=== PATIENT | female | born 1940 | race Caucasian/White ===

== ENCOUNTER → 2019-09-17 | Outpatient (CLI) | payer MEDICARE ==
--- NOTE | 2019-09-17 14:45 | BD ---
EXAMINATION TYPE: Axial Bone Density DATE OF EXAM: 09/17/2019 COMPARISON: 04.13.2006 CLINICAL HISTORY: M 89.9 Height: 63 Weight: 126.5 FRAX RISK QUESTIONS: Alcohol (3 or more units per day): no Family History (Parent hip fracture): no Glucocorticoids (More than 3mos): no (Ex: prednisone, prednisolone, methylprednisolone, dexamethasone, and hydrocortisone). History of Fracture in Adulthood: no Secondary Osteoporosis: 1. Type 1 Diabetes: no 2. Hyperthyroidism: no 3. Menopause before 45: no 4. Malnutrition: no 5. Chronic liver disease: no Rheumatoid Arthritis: no Current Tobacco Use: no RISK FACTORS HISTORY OF: Family History of Osteoporosis: no Active: yes Diet low in dairy products/other sources of calcium: no Postmenopausal woman: age55 Lost more than 2 inches in height since high school: no MEDICATIONS: vitamins Additional History: EXAM MEASUREMENTS: Bone mineral densitometry was performed using the Focus System. Bone mineral density as measured about the Lumbar spine is: ----- L1-L4(G/cm2): 0.871 T Score Values are as follows: ----- L2: -3.5 ----- L3: -2.7 ----- L4: -1.3 ----- L1-L4: -2.6 Bone mineral density has: decreased -2.0 % since study of: 04.13.2006 Bone mineral density about the R hip (g/cm2): 0.815 Bone mineral density about the L hip (g/cm2): 0.726 T Score values are as follows: -----R Neck: -1.6 -----L Neck: -2.2 -----R Total: -2.2 -----L Total: -2.5 Bone mineral density has: decreased -16.6 % since study of: 04.13.2006 IMPRESSION: Osteoporosis (T Score less than -2.5). There is increased fracture risk and therapy is usually indicated based on age. Re-Screen 1-2 years. NOTE: T-SCORE=SD OF THE YOUNG ADULT MEAN.
--- NOTE | 2019-09-19 10:18 | MM ---
Reason for exam: screening (asymptomatic). Last mammogram was performed 2 years and 3 months ago. History: Patient is postmenopausal. Benign excisional biopsy of the right breast, 2011. Physical Findings: A clinical breast exam by your physician is recommended on an annual basis and results should be correlated with mammographic findings. MG 3D Screening Mammo W/Cad Bilateral CC and MLO view(s) were taken. Prior study comparison: June 29, 2017, bilateral MG screening mammo w CAD. July 24, 2015, mammogram, performed at [facility]. No significant changes when compared with prior studies. ASSESSMENT: Benign, BI-RAD 2 RECOMMENDATION: Routine screening mammogram of both breasts in 1 year.
== END | disposition home or self-care (01) ==
LOC: RADMAMWWP 13:43
PROVIDERS: ATTEND Internal Medicine
DX: Z12.31 Encounter for screening mammogram for malignant neoplasm of breast (principal); M81.0 Age-related osteoporosis without current pathological fracture
CPT/HCPCS: 77063; 77067; 77080

== ENCOUNTER → 2020-11-12 | Outpatient (CLI) | payer MEDICARE ==
--- NOTE | 2020-11-13 13:26 | MM ---
Reason for exam: screening (asymptomatic). Last mammogram was performed 1 year and 2 months ago. History: Patient is postmenopausal. Benign excisional biopsy of the right breast, 2011. Physical Findings: A clinical breast exam by your physician is recommended on an annual basis and results should be correlated with mammographic findings. MG 3D Screening Mammo W/Cad Bilateral CC and MLO view(s) were taken. Prior study comparison: September 17, 2019, bilateral MG 3d screening mammo w/cad. June 29, 2017, bilateral MG screening mammo w CAD. The breast tissue is heterogeneously dense. This may lower the sensitivity of mammography. There are benign appearing round calcifications bilaterally. Asymmetric breast tissue left subareolar position, stable. There is no discrete abnormality. ASSESSMENT: Benign, BI-RAD 2 RECOMMENDATION: Routine screening mammogram of both breasts in 1 year.
== END ==
LOC: RADMAMWWP 15:55
PROVIDERS: ATTEND Internal Medicine
DX: Z12.31 Encounter for screening mammogram for malignant neoplasm of breast (principal); Z78.0 Asymptomatic menopausal state
CPT/HCPCS: 77063; 77067

== ENCOUNTER 2023-12-11 09:41 | Emergency (ER) | payer MEDICARE ==
--- NOTE | 2023-12-11 10:19 | ED ---
General Adult HPI - General Chief complaint: Abdominal Pain Stated complaint: Abd Pain Time Seen by Provider: 12/11/23 09:53 Source: patient, family, RN notes reviewed, old records reviewed Mode of arrival: ambulatory Limitations: altered mental status - History of Present Illness Initial comments: Patient is a pleasant 83-year-old female present to the emergency department with abdominal discomfort. Family is present and helps provide history as mere houser has advanced dementia. Patient had upper abdominal discomfort that was reported as severe and now is not bothering her. Patient denies any chest pain. No nausea or vomiting. No fever. No constipation or diarrhea. - Related Data Home Medications Medication Instructions Recorded Confirmed Memantine [Namenda] 10 mg PO BID 05/03/23 12/11/23 Allergies Allergy/AdvReac Type Severity Reaction Status Date / Time Penicillins AdvReac Rash/Hives Verified 12/11/23 10:43 Review of Systems ROS Statement: Those systems with pertinent positive or pertinent negative responses have been documented in the HPI. ROS Other: All systems not noted in ROS Statement are negative. 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 complete hysterectomy Past Psychological History: No Psychological Hx Reported Smoking Status: Never smoker Past Alcohol Use History: None Reported Past Drug Use History: None Reported General Exam Limitations: altered mental status General appearance: alert, in no apparent distress Head exam: Present: normocephalic Eye exam: Present: normal appearance Neck exam: Present: normal inspection Respiratory exam: Present: normal lung sounds bilaterally Cardiovascular Exam: Present: regular rate, normal rhythm Expanded Peripheral pulses: 2+: Radial (R), Radial (L), Posterior Tibialis (R), Posterior Tibialis (L) GI/Abdominal exam: Present: soft, normal bowel sounds. Absent: distended, tenderness, guarding, rebound, rigid, pulsatile mass Extremities exam: Present: normal inspection Neurological exam: Present: alert Psychiatric exam: Present: normal affect, normal mood Skin exam: Present: normal color Course Vital Signs 12/11/23 12/11/23 12/11/23 09:45 11:20 13:11 Temperature 98.6 F Pulse Rate 85 87 107 H Respiratory 20 18 18 Rate Blood Pressure 167/88 183/91 176/70 O2 Sat by Pulse 97 100 Oximetry Medical Decision Making - Medical Decision Making Was pt. sent in by a medical professional or institution (, PA, SHIP WIRER, urgent care, hospital, or fdc...) When possible be specific @ -No Did you speak to anyone other than the patient for history (EMS, parent, family, police, friend...)? What history was obtained from this source @ -Family is present and helps right history as patient has advanced dementia Did you review nursing and triage notes (agree or disagree)? Why? @ -I reviewed and agree with nursing and triage notes Were old charts reviewed (outside hosp., previous admission, EMS record, old EKG, old radiological studies, urgent care reports/EKG's, fdc records)? Report findings @ -No old charts were reviewed Differential Diagnosis (chest pain, altered mental status, abdominal pain women, abdominal pain men, vaginal bleeding, weakness, fever, dyspnea, syncope, headache, dizziness, GI bleed, back pain, seizure, CVA, palpatations, mental health, musculoskeletal)? @ -Differential Abdominal Pain Women: Appendicitis, Cholecystitis, diverticulosis, ischemic bowel, pancreatitis, hepatitis, UTI, gastroenteritis, AAA, incarcerated hernia, bowel obstruction, constipation, inflammatory bowel, hepatitis, peptic ulcer disease, splenic infarction, perforated viscus, vulvitis, ovarian torsion, PID, kidney stone, placenta abruption, this is not meant to be an all-inclusive list EKG interpreted by me (3pts min.). @ -As above X-rays interpreted by me (1pt min.). @ -None done CT interpreted by me (1pt min.). @ -CT scan abdomen pelvis shows 2 large renal cyst. Ileus. Thoracic aorta 4.4 U/S interpreted by me (1pt. min.). @ -None done What testing was considered but not performed or refused? (CT, X-rays, U/S, labs)? Why? @ -None What meds were considered but not given or refused? Why? @ -None Did you discuss the management of the patient with other professionals (professionals i.e. , PA, SHIP W[employer]ER, lab, RT, psych nurse, social science professor, business banker, teacher, custom protection officer, special education case manager)? Give summary @ -No Was smoking cessation discussed for >3mins.? @ -No Was critical care preformed (if so, how long)? @ -No Were there social determinants of health that impacted care today? How? (Homelessness, low income, unemployed, alcoholism, drug addiction, transportation, low edu. Level, literacy, decrease access to med. care, [facility], rehab)? @ -No Was there de-escalation of care discussed even if they declined (Discuss DNR or withdrawal of care, Hospice)? DNR status @ -No What co-morbidities impacted this encounter? (DM, HTN, Smoking, COPD, CAD, Cancer, CVA, ARF, Chemo, Hep., AIDS, mental health diagnosis, sleep apnea, morbid obesity)? @ -None Was patient admitted / discharged? Hospital course, mention meds given and route, prescriptions, significant lab abnormalities, going to OR and other pertinent info. @ -Patient reevaluated and remains symptom-free. Patient and family updated on results and need for follow-up. Undiagnosed new problem with uncertain prognosis? @ -No Drug Therapy requiring intensive monitoring for toxicity (Heparin, Nitro, Insulin, Cardizem)? @ -No Were any procedures done? @ -No Diagnosis/symptom? @ -Abdominal pain Acute, or Chronic, or Acute on Chronic? @ -Acute Uncomplicated (without systemic symptoms) or Complicated (systemic symptoms)? @ -Default Side effects of treatment? @ -No Exacerbation, Progression, or Severe Exacerbation? @ -No Poses a threat to life or bodily function? How? (Chest pain, [place], [place], pneumonia, PE, COPD, DKA, ARF, appy, cholecystitis, CVA, Diverticulitis, Homicidal, Suicidal, threat to staff... and all critical care pts) @ -No - Lab Data Result diagrams: 12/11/23 11:11 12/11/23 11:11 Lab Results 12/11/23 12/11/23 12/11/23 Range/Units 11:11 11:11 11:11 WBC 8.9 (3.8-10.6) k/uL RBC 5.47 H (3.80-5.40) m/uL Hgb 16.0 (11.4-16.0) gm/dL Hct 47.8 H (34.0-46.0) % MCV 87.4 (80.0-100.0) fL MCH 29.3 (25.0-35.0) pg MCHC 33.5 (31.0-37.0) g/dL RDW 13.1 (11.5-15.5) % Plt Count 307 (150-450) k/uL MPV 8.0 Neutrophils % 79 % Lymphocytes % 13 % Monocytes % 6 % Eosinophils % 1 % Basophils % 0 % Neutrophils # 7.0 (1.3-7.7) k/uL Lymphocytes # 1.2 (1.0-4.8) k/uL Monocytes # 0.5 (0-1.0) k/uL Eosinophils # 0.1 (0-0.7) k/uL Basophils # 0.0 (0-0.2) k/uL PT 9.6 L (10.0-12.5) sec INR 0.8 (<1.2) APTT 26.7 (22.0-30.0) sec Sodium 141 (137-145) mmol/L Potassium 4.7 (3.5-5.1) mmol/L Chloride 106 (98-107) mmol/L Carbon Dioxide 22 (22-30) mmol/L Anion Gap 13 mmol/L BUN 24 H (7-17) mg/dL Creatinine 0.76 (0.52-1.04) mg/dL Est GFR (CKD-EPI)AfAm 86 (>60 ml/min/1.73 sqM) Est GFR (CKD-EPI)NonAf 74 (>60 ml/min/1.73 sqM) Glucose 106 H (74-99) mg/dL Calcium 9.8 (8.4-10.2) mg/dL Total Bilirubin 0.8 (0.2-1.3) mg/dL AST 38 H (14-36) U/L ALT 21 (4-34) U/L Alkaline Phosphatase 120 (38-126) U/L Troponin I (0.000-0.034) ng/mL Total Protein 8.5 H (6.3-8.2) g/dL Albumin 5.1 H (3.5-5.0) g/dL Amylase 70 (30-110) U/L Lipase 94 (23-300) U/L 12/11/23 Range/Units 11:11 WBC (3.8-10.6) k/uL RBC (3.80-5.40) m/uL Hgb (11.4-16.0) gm/dL Hct (34.0-46.0) % MCV (80.0-100.0) fL MCH (25.0-35.0) pg MCHC (31.0-37.0) g/dL RDW (11.5-15.5) % Plt Count (150-450) k/uL MPV Neutrophils % % Lymphocytes % % Monocytes % % Eosinophils % % Basophils % % Neutrophils # (1.3-7.7) k/uL Lymphocytes # (1.0-4.8) k/uL Monocytes # (0-1.0) k/uL Eosinophils # (0-0.7) k/uL Basophils # (0-0.2) k/uL PT (10.0-12.5) sec INR (<1.2) APTT (22.0-30.0) sec Sodium (137-145) mmol/L Potassium (3.5-5.1) mmol/L Chloride (98-107) mmol/L Carbon Dioxide (22-30) mmol/L Anion Gap mmol/L BUN (7-17) mg/dL Creatinine (0.52-1.04) mg/dL Est GFR (CKD-EPI)AfAm (>60 ml/min/1.73 sqM) Est GFR (CKD-EPI)NonAf (>60 ml/min/1.73 sqM) Glucose (74-99) mg/dL Calcium (8.4-10.2) mg/dL Total Bilirubin (0.2-1.3) mg/dL AST (14-36) U/L ALT (4-34) U/L Alkaline Phosphatase (38-126) U/L Troponin I <0.012 (0.000-0.034) ng/mL Total Protein (6.3-8.2) g/dL Albumin (3.5-5.0) g/dL Amylase (30-110) U/L Lipase (23-300) U/L Disposition Clinical Impression: Abdominal pain Disposition: HOME SELF-CARE Condition: Stable Instructions (If sedation given, give patient instructions): Abdominal Pain (ED) Additional Instructions: Please do follow-up with your primary care physician in the next couple of days for recheck. Return for increased pain, vomiting, fever, worsening or changing symptoms or any other concerns. Please have primary care physician review CT scan report including evaluation of ascending thoracic aorta Is patient prescribed a controlled substance at d/c from ED?: No Referrals: Viet Alex MD [Primary Care Provider] - 1-2 days Time of Disposition: 13:56
[2023-12-11] MEDS: FAMOTIDINE 20 MG/2 ML VIAL IV STA (11:19)
[2023-12-11 11:39] LABS: Basophils % (A) 0 %; Eosinophils # (A) 0.1 k/uL (0-0.7); Eosinophils % (A) 1 %; HCT 47.8 % (34.0-46.0); Lymphocytes # (A) 1.2 k/uL (1.0-4.8); Lymphocytes % (A) 13 %; MCH 29.3 pg (25.0-35.0); MCHC 33.5 g/dL (31.0-37.0); MCV 87.4 fL (80.0-100.0); Monocytes # (A) 0.5 k/uL (0-1.0); Monocytes % (A) 6 %; Neutrophils % (A) 79 %; Platelet Count 307 k/uL (150-450); RBC 5.47 m/uL (3.80-5.40); RDW 13.1 % (11.5-15.5); WBC 8.9 k/uL (3.8-10.6)
[2023-12-11 11:51] LABS: INR 0.8 (<1.2); Partial Thromboplastin Time 26.7 sec (22.0-30.0); Prothrombin Time 9.6 sec (10.0-12.5)
[2023-12-11 11:59] LABS: ALT 21 U/L (4-34); AST 38 U/L (14-36); African American GFR (CKD) 86 (>60 ml/min/1.73 sqM); Albumin 5.1 g/dL (3.5-5.0); Alkaline Phosphatase 120 U/L (38-126); Amylase 70 U/L (30-110); Anion Gap 13 mmol/L; Blood Urea Nitrogen 24 mg/dL (7-17); Calcium 9.8 mg/dL (8.4-10.2); Carbon Dioxide 22 mmol/L (22-30); Chloride 106 mmol/L (98-107); Glucose 106 mg/dL (74-99); Lipase 94 U/L (23-300); Non-African American GFR(CKD) 74 (>60 ml/min/1.73 sqM); Sodium 141 mmol/L (137-145); Total Bilirubin 0.8 mg/dL (0.2-1.3); Total Protein 8.5 g/dL (6.3-8.2)
[2023-12-11 12:11] LABS: Potassium 4.7 mmol/L (3.5-5.1)
--- NOTE | 2023-12-11 13:44 | CT ---
EXAMINATION TYPE: CT abdomen pelvis w con DATE OF EXAM: 12/11/2023 COMPARISON: 05/03/2023 INDICATION: ABD PAIN DLP: 570.7 mGycm, Automated exposure control for dose reduction was used. CONTRAST: 100 mL of Isovue 300. Study performed without Oral Contrast TECHNIQUE: Axial images were obtained from above the diaphragm to the pubic rami in the axial plane a t 5 mm thick sections. Reconstructed images are reviewed on the computer in the coronal plane. FINDINGS: Limited CT sections are obtained the lung bases. The lung bases are clear. 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 The main pulmonary artery measur es 1.8 cm. Small hiatal hernia is present. CT ABDOMEN: Liver: Normal Spleen: Normal Pancreas: Normal Adrenal glands: The adrenal glands are normal. Gallbladder: Normal Kidneys: No masses are evident. No hydronephrosis is present. 3.6 and 3.4 cm cysts are on the later al right mid kidney. Delayed images were obtained through the kidneys, which remain unremarkable. Aorta: Vascular calcification is within the aorta. Inferior vena cava: Normal. CT PELVIS: Mild fluid-filled small bowel loops are present without dilatation. This extends to the distal ileum. Colon appears unremarkable and is nondilated. Correlate for ileus. Postsurgical changes are within t he sigmoid colon. This study is without oral contrast limiting bowel evaluation. Appendix: Not visualized. No inflammatory changes or dilated tubular structure is evident. Urinary bladder: Normal. Genitourinary structures: Uterus and ovaries are not identified. Osseous structures: No suspicious lytic or sclerotic lesions. IMPRESSION: 1. Fluid-filled nondilated small bowel loops. Correlate for ileus. Follow-up can be performed as cli nically indicated. 2. Right lateral renal cysts
[2023-12-11 14:16] VITALS: BP 155/79; PULSE 87; RESP 20; TEMP 98
== END 2023-12-11 14:02 | disposition home or self-care (01) ==
LOC: EC 09:41
DX: N28.1 Cyst of kidney, acquired (principal); Z88.0 Allergy status to penicillin
CPT/HCPCS: 36415; 80053; 82150; 83690; 84484; 85025; 85610; 85730; 74177; 99284; 96374; J3490; Q9967